=== PATIENT | male | born 1965 | race Caucasian/White ===

== ENCOUNTER → 2017-02-22 | Emergency (ER) | payer OTHER ==
[~2017-02-22] VITALS: Ht 175.3 cm; Wt 112.5 kg
[~2017-02-22] MED LIST: BAYER THERAPY325 MG PO; HYDROMORPHONE 2MG/ML INJ IV ONE; HYDROMORPHONE 2MG/ML INJ ONE; LIDOCAINE HCL 1% LOCAL INJ 20 ML VIAL INJ ONE; ONDANSETRON HCL 4 MG ORAL DISINTEGRATING TAB PO ONE; ONDANSETRON HCL INJ 2 MG/ML VIAL IV STA; SODIUM CHLORIDE 0.9% 1000ML 1,000 ML IV STA; ULTRAM50 MG PO; Z.0.SIMVASTATIN20 MG PO; Z.0.TENORMIN50 MG PO
--- NOTE | 2017-02-22 16:16 | Diagnostic Imaging Report ---
Fingers Indication: Laceration Technique: Three views of the right second digit obtained Comparison: None Findings: Comminuted fracture of the distal phalanx at the top with dorsal separation of the largest fracture fragments by 4 mm. There is surrounding soft tissue swelling. There are degenerative changes of the IP joint of the second digit and to a lesser extent the third digit. The remainder of the hand demonstrates no evidence of fracture or dislocation. There are mild degenerative changes of the CMC joint of the first digit. There are no radiopaque foreign bodies in the soft tissues. IMPRESSION: Comminuted and mildly displaced fracture of the distal phalanx of the second digit at the tuft. Signed by: Dr. Latasha Adonro MD on 02/22/2017 4:13 PM
== END | disposition home or self-care (01) ==
LOC: ER 15:07
DX: S62.660B Nondisplaced fracture of distal phalanx of right index finger, initial encounter for open fracture (principal); W45.8XXA Other foreign body or object entering through skin, initial encounter; Y92.008 Other place in unspecified non-institutional (private) residence as the place of occurrence of the external cause
CPT/HCPCS: 13131; 29130; 73140; 99284; J1170; J2001; J2405; J7030

== ENCOUNTER 2020-09-26 13:44 | Emergency (ER) | payer OTHER ==
[~2020-09-26] VITALS: Ht 175.3 cm; Wt 112.5 kg
[~2020-09-26 13:44] MED LIST changes: -HYDROMORPHONE 2MG/ML INJ IV ONE; -HYDROMORPHONE 2MG/ML INJ ONE; -LIDOCAINE HCL 1% LOCAL INJ 20 ML VIAL INJ ONE; -ONDANSETRON HCL 4 MG ORAL DISINTEGRATING TAB PO ONE; -ONDANSETRON HCL INJ 2 MG/ML VIAL IV STA; -SODIUM CHLORIDE 0.9% 1000ML 1,000 ML IV STA
[2020-09-26 14:08] LABS: BASOPHILS # (AUTO) 0.1 (0.0-0.1); BASOPHILS % 0.7 % (0.0-1.0); EOSINOPHILS # (AUTO) 0.2 (0.0-0.4); EOSINOPHILS % 1.5 % (0.0-6.0); LYMPHOCYTES # (AUTO) 3.3 (1.0-3.2); LYMPHOCYTES % 28.8 % (18.0-39.1); MEAN CORPUSCULAR HEMOGLOBIN 28.9 pg (28-32); MEAN CORPUSCULAR VOLUME 84.8 fL (81-99); MONOCYTES % 8.7 % (4.4-11.3); PLATELET COUNT 287 x10e3/uL (140-360); RED BLOOD COUNT 5.54 x10e6/uL (4.3-5.7); RED CELL DISTRIBUTION WIDTH 13.4 % (11.7-14.4)
[2020-09-26] MEDS ORDERED: ALTEPLASE 50 MG/VIAL (29 MILLION IU) IV ONE ×2 (14:30)
[2020-09-26 14:33] LABS: ALBUMIN 4.3 g/dL (3.5-5.0); ALBUMIN/GLOBULIN RATIO 1.4 (0.8-2.0); ANION GAP 16.3 mmol/L (8-16); CALCIUM 9.1 mg/dL (8.4-10.2); POTASSIUM 3.3 mmol/L (3.5-5.1)
[2020-09-26 14:38] LABS: INR 0.85; PROTHROMBIN TIME 11.8 seconds (11.9-14.5)
[2020-09-26 16:16] VITALS: BP 134/84
== END 2020-09-26 16:53 | disposition other institution (70) ==
LOC: ER 13:47
DX: R20.2 Paresthesia of skin (principal); I63.9 Cerebral infarction, unspecified; I10 Essential (primary) hypertension; Z87.19 Personal history of other diseases of the digestive system
CPT/HCPCS: 36415; 70450; 80053; 82948; 85025; 85610; 99284; U0002

== ENCOUNTER 2021-01-30 03:19 | Emergency (ER) | payer OTHER ==
[~2021-01-30] VITALS: Ht 175.3 cm; Wt 112.5 kg
[2021-01-30] MEDS ORDERED: KETOROLAC TROMETHAMINE 30 MG/ML VIAL IV STA (03:24)
[2021-01-30] MEDS ORDERED: SODIUM CHLORIDE 0.9% 1000ML 1,000 ML IV STA (03:24)
[2021-01-30] MEDS ORDERED: ONDANSETRON HCL INJ 2MG/ML 2ML 2 MG/ML VIAL IV STA ×2 (03:24→04:30)
[2021-01-30 03:31] LABS: BASOPHILS # (AUTO) 0.1 (0.0-0.1); EOSINOPHILS # (AUTO) 0.3 (0.0-0.4); EOSINOPHILS % 2.7 % (0.0-6.0); HEMATOCRIT 47.4 % (38.2-49.6); LYMPHOCYTES # (AUTO) 4.7 (1.0-3.2); LYMPHOCYTES % 44.6 % (18.0-39.1); MEAN CORPUSCULAR HEMOGLOBIN 28.8 pg (28-32); MEAN CORPUSCULAR HGB CONC 33.8 g/dL (31-35); MEAN CORPUSCULAR VOLUME 85.3 fL (81-99); MONOCYTES # (AUTO) 1.3 (0.2-0.8); MONOCYTES % 12.1 % (4.4-11.3); NEUTROPHILS # (AUTO) 4.1 (2.1-6.9); NEUTROPHILS % 39.2 % (38.7-80.0); PLATELET COUNT 271 x10e3/uL (140-360); RED BLOOD COUNT 5.56 x10e6/uL (4.3-5.7); RED CELL DISTRIBUTION WIDTH 13.8 % (11.7-14.4)
[2021-01-30] MEDS ORDERED: KETOROLAC TROMETHAMINE 30 MG/ML VIAL ONE (03:38)
[2021-01-30] MEDS ORDERED: ONDANSETRON HCL INJ 2MG/ML 2ML 2 MG/ML VIAL ONE (03:38)
[2021-01-30 03:43] LABS: CLARITY,URINE CLEAR (CLEAR); COLOR,URINE YELLOW (YELLOW); KETONES,URINE NEGATIVE (NEGATIVE); LEUKOCYTE ESTERASE ,URINE TRACE (NEGATIVE); NITRITE,URINE NEGATIVE (NEGATIVE); PROTEIN,URINE DIPSTICK NEGATIVE (NEGATIVE); URINE UROBILINOGEN 0.2 mg/dL (0.2 - 1)
[2021-01-30 03:46] LABS: BACTERIA,URINE FEW /HPF; EPITHELIAL CELLS,URINE FEW /LPF; MUCUS,URINE MODERATE (RARE); RBC,URINE 0-5 /HPF (0-5)
[2021-01-30 03:51] LABS: ALBUMIN/GLOBULIN RATIO 1.2 (0.8-2.0); ANION GAP 16.1 mmol/L (8-16); CALCIUM 9.3 mg/dL (8.4-10.2); CREATININE, SERUM 1.06 mg/dL (0.72-1.25); POTASSIUM 4.1 mmol/L (3.5-5.1)
[2021-01-30] MEDS ORDERED: Morphine 4mg Syringe 4 MG/ML INJ IV STA ×2 (04:30→04:39)
[2021-01-30] MEDS ORDERED: CYCLOBENZAPRINE5 MG PO (05:09)
== END 2021-01-30 05:38 | disposition home or self-care (01) ==
LOC: ER 03:31
DX: R10.32 Left lower quadrant pain (principal); I10 Essential (primary) hypertension; K76.0 Fatty (change of) liver, not elsewhere classified; Z87.442 Personal history of urinary calculi; Z87.19 Personal history of other diseases of the digestive system
CPT/HCPCS: 36415; 74176; 80053; 81001; 83690; 85025; 99284; J1885; J2270; J2405; J7030

== ENCOUNTER 2021-02-09 15:31 | Emergency (ER) | payer OTHER ==
[~2021-02-09] VITALS: Ht 172.7 cm; Wt 117.0 kg
[~2021-02-09 15:31] MED LIST changes: +CYCLOBENZAPRINE5 MG PO
[2021-02-09] MEDS ORDERED: CASIRIVIMAB/IMDEVIMAB 10 ML in SODIUM CHLORIDE 0.9% 100 ML IV ONE (16:00)
== END 2021-02-09 18:06 | disposition home or self-care (01) ==
LOC: ER 15:55
DX: U07.1 COVID-19 (principal); R05.9 Cough, unspecified; I10 Essential (primary) hypertension; F41.9 Anxiety disorder, unspecified; Z86.73 Personal history of transient ischemic attack (TIA), and cerebral infarction without residual deficits; Z87.19 Personal history of other diseases of the digestive system
CPT/HCPCS: 99283; J7050

== ENCOUNTER 2022-03-15 18:11 | Emergency (ER) | payer OTHER ==
[~2022-03-15] VITALS: Ht 172.7 cm; Wt 117.0 kg
[2022-03-15] MEDS ORDERED: ASPIRIN 81 MG CHEW TAB PO ONE (18:15)
[2022-03-15] MEDS ORDERED: MECLIZINE HCL 12.5 MG TAB PO STA (19:08)
[2022-03-15] MEDS ORDERED: SODIUM CHLORIDE 0.9% 1000ML 1,000 ML IV STA (19:10)
[2022-03-15 19:29] LABS: BASOPHILS # (AUTO) 0.1 (0.0-0.1); BASOPHILS % 0.8 % (0.0-1.0); EOSINOPHILS # (AUTO) 0.2 (0.0-0.4); EOSINOPHILS % 2.5 % (0.0-6.0); HEMATOCRIT 48.9 % (38.2-49.6); LYMPHOCYTES # (AUTO) 3.7 (1.0-3.2); LYMPHOCYTES % 40.3 % (18.0-39.1); MEAN CORPUSCULAR HEMOGLOBIN 29.2 pg (28-32); MEAN CORPUSCULAR HGB CONC 32.7 g/dL (31-35); MEAN CORPUSCULAR VOLUME 89.2 fL (81-99); MONOCYTES # (AUTO) 1.1 (0.2-0.8); MONOCYTES % 12.4 % (4.4-11.3); NEUTROPHILS % 43.9 % (38.7-80.0); PLATELET COUNT 239 x10e3/uL (140-360); RED BLOOD COUNT 5.48 x10e6/uL (4.3-5.7)
[2022-03-15] MEDS ORDERED: ONDANSETRON HCL INJ 2MG/ML 2ML 2 MG/ML VIAL IV STA (19:37)
[2022-03-15 19:47] LABS: ALBUMIN/GLOBULIN RATIO 1.2 (0.8-2.0); ANION GAP 16.2 mmol/L (8-16); CREATININE, SERUM 0.78 mg/dL (0.72-1.25); POTASSIUM 3.2 mmol/L (3.5-5.1)
[2022-03-15 19:53] LABS: CREATINE KINASE MB 2.4 ng/mL (0-5.0)
[2022-03-15] MEDS ORDERED: IOPAMIDOL 370 MG/ML 100 ML INFUS..BTL INJ ONE (20:09)
[2022-03-15] MEDS ORDERED: PROMETHAZINE HCL (IM) 25 MG/ML VIAL IM STA (20:51)
[2022-03-15 21:08] VITALS: BP 138/78
[2022-03-15] MEDS ORDERED: ONDANSETRON ODT4 MG PO (21:10)
[2022-03-15] MEDS ORDERED: MECLIZINE HCL12.5 MG PO (21:10)
== END 2022-03-15 21:15 | disposition home or self-care (01) ==
LOC: ER 18:16
DX: R42 Dizziness and giddiness (principal); R53.1 Weakness; F41.9 Anxiety disorder, unspecified; Z86.73 Personal history of transient ischemic attack (TIA), and cerebral infarction without residual deficits
CPT/HCPCS: 36415; 70496; 70498; 80053; 82550; 82553; 84484; 85025; 93005; 99284; J2405; J2550; J7030; Q9967

== ENCOUNTER 2024-09-23 06:05 | Emergency (ER) | payer OTHER ==
[~2024-09-23] VITALS: Ht 172.7 cm; Wt 104.3 kg
[~2024-09-23 06:05] MED LIST changes: +MECLIZINE HCL12.5 MG PO; +ONDANSETRON ODT4 MG PO
[2024-09-23] MEDS: MECLIZINE HCL 12.5 MG TAB PO ONE (06:37)
[2024-09-23] MEDS: ONDANSETRON HCL INJ 2MG/ML 2ML 2 MG/ML VIAL IV STA (06:37)
[2024-09-23 06:41] LABS: BASOPHILS % 1.1 % (0.0-1.0); EOSINOPHILS % 3.4 % (0.0-6.0); LYMPHOCYTES % 35.7 % (18.0-39.1); MONOCYTES % 11.8 % (4.4-11.3); NEUTROPHILS % 47.6 % (38.7-80.0); RED CELL DISTRIBUTION WIDTH 13.6 % (11.7-14.4)
[2024-09-23 06:58] LABS: EST GLOMERULAR FILTRATION RATE 99.0 ML/MIN (>=60)
[2024-09-23 07:06] LABS: INR 0.85
[2024-09-23 07:30] VITALS: BP 144/94; PULSE 63; RESP 18
[2024-09-23 08:30] VITALS: PULSE 63; RESP 18; TEMP 98.2; O2SAT 97
[2024-09-23] MEDS ORDERED: MECLIZINE HCL12.5 MG PO (08:36)
[2024-09-23 08:58] LABS: LEUKOCYTE ESTERASE ,URINE NEGATIVE (NEGATIVE); PROTEIN,URINE DIPSTICK NEGATIVE (NEGATIVE)
[2024-09-23 08:59] LABS: EPITHELIAL CELLS,URINE FEW /LPF; URINE UROBILINOGEN 1 mg/dL (0.2 - 1); WBC,URINE (MAN) 0-5 /HPF (0-5)
== END 2024-09-23 09:00 | disposition home or self-care (01) ==
LOC: ER 06:09
DX: R42 Dizziness and giddiness (principal); I10 Essential (primary) hypertension; E11.65 Type 2 diabetes mellitus with hyperglycemia; E78.5 Hyperlipidemia, unspecified; F41.9 Anxiety disorder, unspecified; Z86.73 Personal history of transient ischemic attack (TIA), and cerebral infarction without residual deficits; Z87.19 Personal history of other diseases of the digestive system; Z87.442 Personal history of urinary calculi
CPT/HCPCS: 36415; 70450; 80053; 81001; 84484; 85025; 85610; 93005; 99284; J2405; J8597